=== PATIENT | male | born 1975 | race American Indian/Alaskan Native ===

== ENCOUNTER 2022-01-21 11:35 | Emergency (ER) | payer SELFPAY ==
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
[2022-01-21 12:54] VITALS: BP 99/65
== END 2022-01-21 12:54 | disposition home or self-care (01) ==
LOC: ED 11:35
DX: J32.9 Chronic sinusitis, unspecified (principal)
CPT/HCPCS: 99282